=== PATIENT | female | born 1970 | race Two or more races ===

== ENCOUNTER 2023-09-17 09:57 | Inpatient (IN) | payer OTHER ==
[2023-09-17] MEDS ORDERED: DEXAMETHASONE LIQUID 0.5 MG/5 ML PO ONE (10:34)
[2023-09-17] MEDS ORDERED: DEXAMETHASONE SOD PHOSPHATE 10 MG/1 ML VIAL ONE (10:40)
[2023-09-17] MEDS: ALBUTEROL SO4 2.5/IPRATROPIUM 0.5 INH SOL 3 ML VIAL.NEB. NEB SCH ×5 (10:54→20:09)
[2023-09-17] MEDS ORDERED: CEFTRIAXONE 1,000 MG in DEXTROSE 5%-WATER - 50 ML IVPB ONE (12:06)
[2023-09-17] MEDS ORDERED: AZITHROMYCIN 250 MG TABLET PO ONE (12:06)
[2023-09-17] MEDS ORDERED: MAGNESIUM SULF 50% (8.12 MEQ/2 ML-1 GM VIAL) IVPB ONE (12:07)
[2023-09-17] MEDS ORDERED: ALBUTEROL SO4 0.083% IH SOL 2.5 MG/3 ML VIAL.NEB. NEB ONE ×3 (12:11→16:14)
[2023-09-17] MEDS ORDERED: AZITHROMYCIN 500 MG TABLET ONE (12:50)
[2023-09-17] MEDS ORDERED: MAGNESIUM SULF 50% (8.12 MEQ/2 ML-1 GM VIAL) ONE ×2 (12:50→13:46)
[2023-09-17] MEDS ORDERED: CEFTRIAXONE 1 GM/50 ML BAG ONE (12:50)
[2023-09-17 13:05] LABS: VENOUS O2 SATURATION 75.2 % (70-80); VENOUS PCO2 38.4 mmHg (38-52); VENOUS PH 7.404 (7.310-7.410)
[2023-09-17 13:07] LABS: BASO % 0.3 % (0-2.0); EOS % 0.1 % (0-4.5); HEMATOCRIT 38.1 % (32.4-45.2); HEMOGLOBIN 13.2 GM/dL (10.7-15.3); LYMPH % 6.9 % (8-40); MCH 31.5 pg (25.7-33.7); MCHC 34.6 g/dl (32.0-36.0); MEAN CELL VOLUME 91.1 fl (80-96); MEAN PLT VOLUME 7.3 fl (7.5-11.1); MONO % 4.6 % (3.8-10.2); NEUT % 88.1 % (42.8-82.8); PLATELET COUNT 310 10^3/uL (134-434); RBC 4.18 M/mm3 (3.60-5.2); RDW 12.3 % (11.6-15.6)
[2023-09-17 13:19] LABS: POTASSIUM 4.1 mmol/L (3.5-5.1)
[2023-09-17 13:22] LABS: ALBUMIN 3.2 g/dl (3.4-5.0)
[2023-09-17 13:25] LABS: CREATININE 0.8 mg/dL (0.55-1.3)
[2023-09-17 13:27] LABS: BILIRUBIN,TOTAL 0.5 mg/dL (0.2-1); TOT PROT 7.5 g/dl (6.4-8.2)
[2023-09-17] MEDS ORDERED: SODIUM CHLORIDE 1,000 ML IV STA (14:00)
[2023-09-17] MEDS ORDERED: ALBUTEROL SO4 HFA INHALER IH PRN (14:02)
[2023-09-17] MEDS ORDERED: ACETAMINOPHEN 325 MG TABLET (FP) PO PRN (15:36)
[2023-09-17] MEDS ORDERED: methylPREDNISolone NA SUCC 40 MG/1 ML VIAL ONE (16:13)
[2023-09-17] MEDS: methylPREDNISolone NA SUCC 40 MG/1 ML VIAL IVPUSH SCH (16:19)
[2023-09-17] MEDS ORDERED: ALBUTEROL SO4 2.5/IPRATROPIUM 0.5 INH SOL 3 ML VIAL.NEB. NEB ONE (20:08)
[2023-09-18 00:39] VITALS: BMI 29.8
[2023-09-18] MEDS: guaiFENesin 200 MG/10 ML 10 ML UNIT-DOSE CUPS PO PRN ×2 (01:35→23:19)
[2023-09-18] MEDS: ALBUTEROL SO4 2.5/IPRATROPIUM 0.5 INH SOL 3 ML VIAL.NEB. NEB SCH ×4 (07:35→20:15)
[2023-09-18 08:48] LABS: BASO % 0.2 % (0-2.0); HEMATOCRIT 35.6 % (32.4-45.2); HEMOGLOBIN 12.4 GM/dL (10.7-15.3); LYMPH % 13.9 % (8-40); MCH 32.4 pg (25.7-33.7); MEAN CELL VOLUME 92.7 fl (80-96); MEAN PLT VOLUME 7.4 fl (7.5-11.1); MONO % 8.2 % (3.8-10.2); NEUT % 77.7 % (42.8-82.8); PLATELET COUNT 318 10^3/uL (134-434); RBC 3.84 M/mm3 (3.60-5.2); RDW 12.7 % (11.6-15.6); WHITE BLOOD COUNT 7.9 K/mm3 (4.0-10.0)
[2023-09-18 09:01] LABS: ALBUMIN 2.9 g/dl (3.4-5.0); CALCIUM 9.2 mg/dL (8.5-10.1); MAGNESIUM 2.6 mg/dL (1.8-2.4)
[2023-09-18 09:02] LABS: BLOOD UREA NITROGEN 8.5 mg/dL (7-18)
[2023-09-18 09:05] LABS: CREATININE 0.6 mg/dL (0.55-1.3); PHOSPHOROUS 3.9 mg/dL (2.5-4.9)
[2023-09-18 09:06] LABS: BILIRUBIN,TOTAL 0.2 mg/dL (0.2-1); TOT PROT 6.9 g/dl (6.4-8.2)
[2023-09-18] MEDS: ENOXAPARIN NA (PORCINE) 40 MG/0.4 ML DISP.SYRIN SQ SCH (09:21)
[2023-09-18] MEDS: AZITHROMYCIN 250 MG TABLET PO SCH (09:22)
[2023-09-18] MEDS: methylPREDNISolone NA SUCC 40 MG/1 ML VIAL IVPUSH SCH (09:22)
[2023-09-18] MEDS: CEFTRIAXONE 1 GM in DEXTROSE 5%-WATER - 50 ML IVPB SCH (09:22)
[2023-09-18 09:26] LABS: CHOLESTEROL 168 mg/dL (50-200)
[2023-09-18 09:27] LABS: LDL CHOLESTEROL (ONLY SJRH) 90 mg/dL (5-100)
[2023-09-18 09:33] LABS: HDL CHOLESTEROL 61 mg/dL (40-60)
[2023-09-18] MEDS: MONTELUKAST NA 10 MG TABLET PO SCH (21:13)
[2023-09-18] MEDS: BUDESONIDE/FORMETEROL FUMARATE 80/4.5 mcg INHALER IH SCH (21:13)
[2023-09-19] MEDS: guaiFENesin 200 MG/10 ML 10 ML UNIT-DOSE CUPS PO PRN (06:11)
[2023-09-19] MEDS: ALBUTEROL SO4 2.5/IPRATROPIUM 0.5 INH SOL 3 ML VIAL.NEB. NEB SCH ×4 (08:15→20:05)
[2023-09-19 09:05] LABS: BASO % 0.2 % (0-2.0); EOS % 0.1 % (0-4.5); HEMATOCRIT 33.3 % (32.4-45.2); HEMOGLOBIN 11.7 GM/dL (10.7-15.3); LYMPH % 26.9 % (8-40); MCH 33.2 pg (25.7-33.7); MCHC 35.1 g/dl (32.0-36.0); MEAN CELL VOLUME 94.5 fl (80-96); MEAN PLT VOLUME 7.2 fl (7.5-11.1); MONO % 7.8 % (3.8-10.2); PLATELET COUNT 294 10^3/uL (134-434); RBC 3.52 M/mm3 (3.60-5.2); RDW 12.4 % (11.6-15.6); WHITE BLOOD COUNT 9.8 K/mm3 (4.0-10.0)
[2023-09-19 09:26] LABS: POTASSIUM 3.7 mmol/L (3.5-5.1)
[2023-09-19 09:33] LABS: CALCIUM 8.5 mg/dL (8.5-10.1)
[2023-09-19 09:34] LABS: ALBUMIN 2.7 g/dl (3.4-5.0); BLOOD UREA NITROGEN 9.7 mg/dL (7-18); MAGNESIUM 2.2 mg/dL (1.8-2.4)
[2023-09-19 09:35] LABS: CREATININE 0.5 mg/dL (0.55-1.3)
[2023-09-19 09:37] LABS: BILIRUBIN,TOTAL 0.4 mg/dL (0.2-1); TOT PROT 6.2 g/dl (6.4-8.2)
[2023-09-19] MEDS: ENOXAPARIN NA (PORCINE) 40 MG/0.4 ML DISP.SYRIN SQ SCH (10:00)
[2023-09-19] MEDS: CEFTRIAXONE 1 GM in DEXTROSE 5%-WATER - 50 ML IVPB SCH (10:01)
[2023-09-19] MEDS: AZITHROMYCIN 250 MG TABLET PO SCH (10:01)
[2023-09-19] MEDS: methylPREDNISolone NA SUCC 40 MG/1 ML VIAL IVPUSH SCH ×3 (10:01→21:36)
[2023-09-19] MEDS: BUDESONIDE/FORMETEROL FUMARATE 80/4.5 mcg INHALER IH SCH ×2 (10:01→21:37)
[2023-09-19] MEDS: MONTELUKAST NA 10 MG TABLET PO SCH (21:36)
[2023-09-20] MEDS: methylPREDNISolone NA SUCC 40 MG/1 ML VIAL IVPUSH SCH ×4 (02:34→21:06)
[2023-09-20] MEDS: ALBUTEROL SO4 2.5/IPRATROPIUM 0.5 INH SOL 3 ML VIAL.NEB. NEB SCH ×4 (07:35→20:32)
[2023-09-20 09:07] LABS: BASO % 0.2 % (0-2.0); HEMATOCRIT 39.3 % (32.4-45.2); HEMOGLOBIN 13.2 GM/dL (10.7-15.3); MCHC 33.6 g/dl (32.0-36.0); MEAN CELL VOLUME 89.2 fl (80-96); MEAN PLT VOLUME 6.9 fl (7.5-11.1); NEUT % 85.8 % (42.8-82.8); PLATELET COUNT 373 10^3/uL (134-434); RBC 4.41 M/mm3 (3.60-5.2); RDW 12.6 % (11.6-15.6); WHITE BLOOD COUNT 9.6 K/mm3 (4.0-10.0)
[2023-09-20 09:31] LABS: POTASSIUM 4.1 mmol/L (3.5-5.1)
[2023-09-20 09:46] LABS: ALBUMIN 2.9 g/dl (3.4-5.0); CALCIUM 8.9 mg/dL (8.5-10.1)
[2023-09-20 09:47] LABS: BLOOD UREA NITROGEN 11.8 mg/dL (7-18); MAGNESIUM 2.5 mg/dL (1.8-2.4)
[2023-09-20 09:50] LABS: CREATININE 0.7 mg/dL (0.55-1.3)
[2023-09-20 09:51] LABS: BILIRUBIN,TOTAL 0.2 mg/dL (0.2-1); TOT PROT 6.8 g/dl (6.4-8.2)
[2023-09-20] MEDS: CEFTRIAXONE 1 GM in DEXTROSE 5%-WATER - 50 ML IVPB SCH (09:57)
[2023-09-20] MEDS: ENOXAPARIN NA (PORCINE) 40 MG/0.4 ML DISP.SYRIN SQ SCH (09:57)
[2023-09-20] MEDS: AZITHROMYCIN 250 MG TABLET PO SCH (09:57)
[2023-09-20] MEDS: BUDESONIDE/FORMETEROL FUMARATE 80/4.5 mcg INHALER IH SCH ×2 (09:58→21:06)
[2023-09-20] MEDS: MONTELUKAST NA 10 MG TABLET PO SCH (21:06)
[2023-09-21] MEDS: methylPREDNISolone NA SUCC 40 MG/1 ML VIAL IVPUSH SCH ×4 (02:06→21:47)
[2023-09-21] MEDS: ALBUTEROL SO4 2.5/IPRATROPIUM 0.5 INH SOL 3 ML VIAL.NEB. NEB SCH ×4 (08:00→19:59)
[2023-09-21] MEDS: AZITHROMYCIN 250 MG TABLET PO SCH (09:10)
[2023-09-21] MEDS: CEFTRIAXONE 1 GM in DEXTROSE 5%-WATER - 50 ML IVPB SCH (09:10)
[2023-09-21] MEDS: BUDESONIDE/FORMETEROL FUMARATE 80/4.5 mcg INHALER IH SCH ×2 (09:10→21:48)
[2023-09-21] MEDS: ENOXAPARIN NA (PORCINE) 40 MG/0.4 ML DISP.SYRIN SQ SCH (09:11)
[2023-09-21] MEDS ORDERED: methylPREDNISolone NA SUCC 40 MG/1 ML VIAL IVPUSH SCH (18:00)
[2023-09-21 20:56] VITALS: RESP 20
[2023-09-21] MEDS: MONTELUKAST NA 10 MG TABLET PO SCH (21:47)
[2023-09-22] MEDS: ALBUTEROL SO4 2.5/IPRATROPIUM 0.5 INH SOL 3 ML VIAL.NEB. NEB SCH ×2 (07:25→11:15)
[2023-09-22 09:25] LABS: HEMATOCRIT 39.9 % (32.4-45.2); HEMOGLOBIN 13.8 GM/dL (10.7-15.3); LYMPH % 17.5 % (8-40); MCH 31.2 pg (25.7-33.7); MCHC 34.5 g/dl (32.0-36.0); MEAN CELL VOLUME 90.5 fl (80-96); MEAN PLT VOLUME 6.9 fl (7.5-11.1); MONO % 6.4 % (3.8-10.2); NEUT % 76.1 % (42.8-82.8); PLATELET COUNT 357 10^3/uL (134-434); RBC 4.41 M/mm3 (3.60-5.2); RDW 12.3 % (11.6-15.6); WHITE BLOOD COUNT 10.2 K/mm3 (4.0-10.0)
[2023-09-22] MEDS: ENOXAPARIN NA (PORCINE) 40 MG/0.4 ML DISP.SYRIN SQ SCH (09:29)
[2023-09-22] MEDS: CEFTRIAXONE 1 GM in DEXTROSE 5%-WATER - 50 ML IVPB SCH (09:29)
[2023-09-22] MEDS: BUDESONIDE/FORMETEROL FUMARATE 80/4.5 mcg INHALER IH SCH (09:29)
[2023-09-22] MEDS ORDERED: methylPREDNISolone NA SUCC 40 MG/1 ML VIAL IVPUSH SCH (10:00)
[2023-09-22 10:25] LABS: POTASSIUM 4.6 mmol/L (3.5-5.1)
[2023-09-22 10:51] LABS: BILIRUBIN,TOTAL 0.2 mg/dL (0.2-1); BLOOD UREA NITROGEN 15.8 mg/dL (7-18); CALCIUM 9.3 mg/dL (8.5-10.1); MAGNESIUM 2.5 mg/dL (1.8-2.4); TOT PROT 6.8 g/dl (6.4-8.2)
[2023-09-22 10:54] LABS: CREATININE 0.6 mg/dL (0.55-1.3)
[2023-09-22 12:33] VITALS: PULSE 94
[2023-09-22 13:40] VITALS: BP 121/61; TEMP 98
[2023-09-23] MEDS ORDERED: predniSONE 20 MG TABLET (UD) PO SCH (10:00)
[2023-09-23] MEDS ORDERED: AMOX TR/POT CLAV 875MG/125MG TABLETS (FP) PO SCH (17:30)
== END 2023-09-22 14:51 | disposition home or self-care (01) | DRG 139 ==
LOC: JER 09:57 → JERBED 13:30 → J8W 22:19
PROVIDERS: ADMIT Internal Medicine; ATTEND Nurse Practitioner Acute Care
DX: J18.9 Pneumonia, unspecified organism (principal); J45.41 Moderate persistent asthma with (acute) exacerbation; R49.0 Dysphonia; F17.210 Nicotine dependence, cigarettes, uncomplicated
CPT/HCPCS: 0241U-QW; 36415; 71046-TC-FY; 80053; 80061; 82803; 83036; 83735; 84100; 85025; 93005; 93010; 94640; 94761; 99285-25